=== PATIENT | female | born 1950 | race African-American/Black ===

== ENCOUNTER 2019-06-25 07:46 | Emergency (ER) | payer OTHER ==
--- OUTSIDE RECORDS SUMMARY | 2019-06-25 07:51 | XMS REPORT | Continuity of Care Document ---
:1950 External Reference #:[id number] Author Name Pearl Chadwick M.D. (transmitted by agent of provider Tenisha Yao) Address [address] [place] [address], [place] [address] Care Team Providers Name Role Phone Pearl Chadwick MD - Internal Care Team Information [employer] Medicine Rojas Yu MD - Gastroenterology Care Team Information [employer] Equipment Mechanic [phone] Maurice Villaseñor DO - Dermatology Care Team Information X Ray Equipment Mechanic [phone] Maria Del Carmen Block MD - Psychiatry Care Team Information [employer] Equipment Mechanic Thierry oCbb MD [facility] - Care Team Information [employer] Equipment [employer]ic Cardiovascular Disease Problems Active Problems Provider Date Anxiety state Pearl Chadwick M.D. Onset: 03/07/2011 Pulmonary embolism Pearl Chadwick M.D. Onset: 03/11/2012 C-reactive protein abnormal Cecil Cheng M.D. Onset: 01/22/2016 High enzyme level in serum Cecil Cheng M.D. Onset: 01/22/2016 Lumbar spondylosis Cecil Cheng M.D. Onset: 01/22/2016 Myalgia Cecil Cheng M.D. 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 Nystop apply twice 60gm R21 Pearl Cotton, 05/20/2019 856277Joht/GM daily to M.D. Powder affected areas Nitroglycerin on every morning 30units R07.9 Nicole Roberto Montes, 12/30/2018 0.1mg/HR and off qpm. N.P. Patches 24HR (Reports only wears if will be exerting herself) Propranolol HCL 3 tabs by mouth Unknown 10mg 3x week as Tablets needed Trazodone HCL 1 tablet at Unknown 50mg bedtime Tablets Clonazepam 1-2 tabs at Maria Del Carmen Block 0.5mg prn H.MD Tablets Dispers Xarelto take 1 tablet 60tabs Pearl Cotton, 20mg Tablets daily M.D. Super B Complex Maxi 1 by mouth every Unknown day Tablets Turmeric 1 by mouth every Unknown 500mg Capsules day Immunizations CPT Code Status Date Vaccine Lot # [id number] Given 08/20/2018 Pneumonia Vaccine [id number] 40813 Given 08/20/2018 Influenza Virus Vaccine, Quadrivalent, Split, [id number] Preservative Free [id number] Given 08/11/2017 Tdap - Tetanus/Diptheria/Acellular Pertussis [id number] 44830 Given 08/11/2017 Influenza Virus Vaccine, Quadrivalent, Split, [id number] Preservative Free 49020 Given 12/27/2015 Pneumococcal Conjugate Vaccine 13 Valent For [id number] Intramuscular Use 54853 Given 07/19/2014 Flu Vaccine Split Virus Preservative Free For [id number] Indiv 3Yr Older 15101 Given 06/01/2013 Zoster (Zostavax) [id number] 78920 Given 06/01/2013 Flu Vaccine Split Virus Preservative Free For [id number] Indiv 3Yr Older [id number] Given 05/25/2012 Fluvirin Im 3Yrs And Older Vital Signs Date Vital Result Comment 05/20/2019 2:07pm Height 66.5 inches 5'6.50" Weight 248.00 lb Heart Rate 83 /min BP Systolic 141 mmHg BP Diastolic 99 mmHg BP Systolic Sitting 154 mmHg recheck BP Diastolic Sitting 70 mmHg recheck O2 % BldC Oximetry 95 % BMI (Body Mass Index) 39.4 kg/m2 04/09/2019 1:26pm Height 66.5 inches 5'6.50" Weight 247.00 lb with shoes Heart Rate 76 /min BP Systolic Sitting 120 mmHg Lue (Large cuff) BP Diastolic Sitting 72 mmHg Lue (Large cuff) BP Systolic Standing 130 mmHg BP Diastolic Standing 70 mmHg BMI (Body Mass Index) 39.3 kg/m2 Ejection Fraction 50-55% Echocardiogram 11/25/18 Results Description No Information Available Procedures Date Code Description Status 11/25/2018 00342 ECHO Transthoracic, Real-Time 2D With Doppler And Completed Color Flow 11/25/2018 71532 ECHO Transthoracic, Real-Time 2D With Doppler And Completed Color Flow 11/14/2017 [id number] Mammogram Completed 01/02/2016 [id number] Bone Mineral Density Test Completed 01/02/2016 [id number] Mammogram Completed 01/19/2014 [id number] Colonoscopy Completed 03/18/2011 [id number] Bone Mineral Density Test Completed 03/18/2011 [id number] Mammogram Completed 04/04/2009 [id number] Diabetic Foot Exam Completed 08/22/2008 [id number] Bone Mineral Density Test Completed 04/14/2008 [id number] Mammogram Completed 02/15/2008 [id number] Colonoscopy Completed Medical Devices Description No Information Available Encounters Type Date Location Provider Dx Diagnosis Office Visit 04/09/2019 [facility] Qutarustam S. R07.9 Chest pain, 1:40p Rosa Cobb unspecified E66.9 Obesity, unspecified R06.83 Snoring I34.0 Nonrheumatic mitral (valve) insufficiency Z79.01 custodial (current) use of anticoagulants Office Visit 12/30/2018 11:30a [facility] Nicole S. R07.9 Chest pain, Foster, N.P. unspecified R94.39 Abnormal result of other cardiovascular function study R94.31 Abnormal electrocardiogram [ECG] [EKG] Z86.711 Personal history of pulmonary embolism Assessments Date Code Description Provider 05/20/2019 G47.00 Insomnia, unspecified Pearl Chadwick M.D. 05/20/2019 R06.83 Snoring Pearl Chadwick M.D. 05/20/2019 Z79.01 intermediate designer (current) use of Pearl Chadwick M.D. anticoagulants 05/20/2019 E78.5 Hyperlipidemia, unspecified Pearl Chadwick M.D. 05/20/2019 R21 Rash and other nonspecific skin Pearl Chadwick M.D. eruption 04/09/2019 R07.9 Chest pain, unspecified Thierry Cobb M.D. 04/09/2019 E66.9 Obesity, unspecified Thierry Cobb M.D. 04/09/2019 R06.83 Snoring Thierry Cobb M.D. 04/09/2019 I34.0 Nonrheumatic mitral (valve) Thierry Cobb M.D. insufficiency 04/09/2019 Z79.01 intermediate designer (current) use of Thierry Cobb M.D. anticoagulants 12/30/2018 R07.9 Chest pain, unspecified Nicole Montes, N.P. 12/30/2018 R94.39 Abnormal result of other Nicole Montes, N.P. cardiovascular function study 12/30/2018 R94.31 Abnormal electrocardiogram [ECG] [EKG] Nicole Montes, N.P. 12/30/2018 Z86.711 Personal history of pulmonary embolism Nicole Montes, N.P. 11/25/2018 R07.9 Chest pain, unspecified Thierry Cobb M.D. 11/25/2018 R07.9 Chest pain, unspecified [facility] 11/25/2018 R94.39 Abnormal result of other [facility] cardiovascular function study 11/25/2018 E66.9 Obesity, unspecified [facility] 11/25/2018 G47.30 Sleep apnea, unspecified [facility] 11/25/2018 R94.31 Abnormal electrocardiogram [ECG] [EKG] [facility] Plan of Treatment Future Appointment(s):08/23/2019 11:00 am - [facility] Pearl Chadwick M.D.G47.00 Insomnia, ytjzmvjbaocK48.83 VmkexffQ91.01 intermediate designer (current) use of anticoagulantsNew Labs:CBC Auto Diff, Ordered: 05/20/19E78.5 Hyperlipidemia, unspecifiedNew Labs: Lipid Profile (Trig/Chol/HDL), Ordered: 05/20/19Comp Metabolic Panel, Ordered: 05/20/19Comments:Fasting labs prior to PE in Rash and other nonspecific skin eruptionNew Medication:Ketoconazole 2 % - apply thin film twice dailyNystop 292132 Unit/GM - apply twice daily to affected areasComments: Continue cortisoneAdd ketoconazole - for a month, when better switch to powder to prevent recurrenceFollow up:F/u in Aug, pls give Kim Guerrero appt, also needs VALERIO Functional Status Description No Information Available Mental Status Description No Information Available Referrals Description No Information Available
[2019-06-25 07:57] VITALS: BP 145/68
--- NOTE | 2019-06-25 08:16 | UC ---
Eye Complaint HPI - HPI Summary HPI Summary: Patient is a 69-year-old female with a 2 to three-day history of gradually worsening right lower eyelid pain and swelling. She has had no purulent discharge. She denies any visual changes. She denies any URI symptoms. She has had no fever or chills. - History of Current Complaint Chief Complaint: UCEye Stated Complaint: EYE IRRITATION Time Seen by Provider: 06/25/19 08:10 Hx Obtained From: Patient Onset/Duration: Gradual Onset, Lasting Days Timing: Constant Severity Initially: Mild Pain Intensity: 2 Pain Scale Used: 0-10 Numeric Location of Injury: Eye Lid (lower) Character: Dull Aggravating Factor(s): Other - touch Alleviating Factor(s): Nothing Associated Signs And Symptoms: Positive: Swelling - right lower lid. Negative: Photophobia, Drainage (Clear), Drainage (Purulent), Vision Impairment Bilateral , Vision Impairment Right, Vision Impairment Left, Fever Eyes: 1 - chalazion - Risk Factors Penetrating Injury Risk Factor: Negative Globe Rupture Risk Factors: Negative Acute Glaucoma Risk Factors: Negative Optic Artery Occlusion Risk Factors: Negative - Allergies/Home Medications Allergies/Adverse Reactions: Allergies Allergy/AdvReac Type Severity Reaction Status Date / Time environmental Allergy Congestion Uncoded 06/25/19 07:56 PMH/Surg Hx/FS Hx/Imm Hx Previously Healthy: Yes Cardiovascular History: Hypertension Respiratory History: Pulmonary Embolism Psychological History: Anxiety - Surgical History Surgical History: Yes Surgery Procedure, Year, and Place: partial hysterectomy and gallbladder removal of cyst on head in 2010. cataract surgery - Social History Alcohol Use: None Substance Use Type: None Smoking Status (MU): Former Smoker Type: Cigarettes Have You Smoked in the Last Year: No When Did the Patient Quit Smoking/Using Tobacco: 1978 Review of Systems All Other Systems Reviewed And Are Negative: Yes Constitutional: Positive: Negative Skin: Positive: Negative Eyes: Positive: Other - lid swelling and pain ENT: Positive: Negative Respiratory: Positive: Negative Cardiovascular: Positive: Negative Gastrointestinal: Positive: Negative Genitourinary: Positive: Negative Motor: Positive: Negative Neurovascular: Positive: Negative Musculoskeletal: Positive: Negative Neurological: Positive: Negative Psychological: Positive: Negative Physical Exam Triage Information Reviewed: Yes Appearance: Well-Appearing, No Pain Distress, Well-Nourished Vital Signs: Initial Vital Signs Temp 96.3 F 06/25/19 07:50 Pulse 75 06/25/19 07:50 Resp 18 06/25/19 07:50 BP 145/68 06/25/19 07:50 Pulse Ox 98 06/25/19 07:50 Vital Signs Reviewed: Yes Eyes: Positive: Conjunctiva Clear, Other: - see image ENT: Positive: Hearing grossly normal. Negative: Nasal congestion, Nasal drainage, Trismus, Muffled voice, Hoarse voice Neck: Positive: Supple, Nontender, No Lymphadenopathy Respiratory: Positive: Lungs clear, Normal breath sounds, No respiratory distress Cardiovascular: Positive: RRR, No Murmur Musculoskeletal: Positive: ROM Intact, No Edema Neurological: Positive: Alert Psychological Exam: Normal Skin Exam: Normal Eye Complaint Course/Dx - Differential Dx/Diagnosis Provider Diagnosis: Chalazion right lower eyelid Discharge ED - Sign-Out/Discharge Documenting (check all that apply): Patient Departure All imaging exams completed and their final reports reviewed: No Studies - Discharge Plan Condition: Stable Disposition: HOME Prescriptions: Cephalexin CAP* [Keflex CAP*] 500 mg PO QID #28 cap Patient Education Materials: Darcy (ED) Referrals: Rojas Camp MD [Medical Doctor] - 2 Weeks Additional Instructions: warm compresses 4-6 x day - Billing Disposition and Condition Condition: STABLE Disposition: Home
== END 2019-06-25 08:22 | disposition home or self-care (01) ==
LOC: UCEAST 07:46
DX: H00.12 Chalazion right lower eyelid (principal); I10 Essential (primary) hypertension; Z87.891 Personal history of nicotine dependence; Z91.09 Other allergy status, other than to drugs and biological substances; Z98.890 Other specified postprocedural states
CPT/HCPCS: 99212; G0463